=== PATIENT | male | born 1950 | race Caucasian/White ===

== ENCOUNTER → 2023-02-27 07:35 | Outpatient (CLI) | payer MEDICARE, SELFPAY ==
[2023-02-27 09:10] LABS: Alanine Aminotransferase 35 IU/L (<50); Albumin 4.4 g/dL (3.5-5.0); Albumin Globulin Ratio 1.7 (1.0-2.8); Alkaline Phosphatase 58 U/L (38-126); Aspartate Aminotransferase 32 IU/L (17-59); BUN Creatinine Ratio 19.3 (6-22); Bilirubin Total 0.8 mg/dL (0.2-1.3); Blood Urea Nitrogen 16 mg/dL (9-20); Calcium 9.1 mg/dL (8.4-10.2); Carbon Dioxide 33 mmol/L (22-32); Chloride 103 mmol/L (98-107); Cholesterol 123 mg/dL (140-199); Estimated Glomerular Filt Rate > 60 mL/min (>60); Globulin 2.6 g/dL (1.7-4.1); Glucose 99 mg/dL (80-110); HDL Cholesterol 36 mg/dL (40-60); HEMOLYSIS < 15 (0-50); LDL Cholesterol Calculated 71 mg/dL (<100); Potassium 4.4 mmol/L (3.4-5.1); Sodium 141 mmol/L (137-145); Triglycerides 81 mg/dL (35-150)
== END ==
PROVIDERS: PCP Internal Medicine; Referring Provider Internal Medicine; Visit Provider Internal Medicine
DX: I10 Essential (primary) hypertension (principal); E78.2 Mixed hyperlipidemia
CPT/HCPCS: 36415; 80053; 80061

== ENCOUNTER 2023-04-10 23:04 | Emergency (ER) | payer MEDICARE, SELFPAY ==
[2023-04-10 23:10] VITALS: BP 205/95; PULSE 52; RESP 18; O2SAT 100; BMI 27.9
--- NOTE | 2023-04-10 23:26 | DI.RAD.S_ITS ---
PROCEDURE: XR KNEE LT 3V INDICATIONS: fell at 1600,left knee pain and swelling TECHNIQUE: 3 views of the knee were acquired. COMPARISON: None. FINDINGS: Bones: No fractures or dislocations. No suspicious bony lesions. Soft tissues: There is a small joint effusion. There is marked prepatellar soft tissue swelling. No suspicious soft tissue calcifications. IMPRESSION: 1. No fracture or dislocation. 2. Prepatellar soft tissue swelling may represent a subcutaneous hematoma. 3. Small joint effusion. Dictated by: Augie Gottlieb M.D. on 04/11/2023 at 0:36 Approved by: Augie Gottlieb M.D. on 04/11/2023 at 0:37
[2023-04-10 23:57] VITALS: PULSE 54; O2SAT 94
[2023-04-11] VITALS (9 sets, daily range): BP systolic 174–180; BP diastolic 77–79; PULSE 49–58; O2SAT 93–96
--- NOTE | 2023-04-11 00:45 | ED_ITS ---
HPI - Extremity Injury (Lower) General Chief Complaint: Extremity Injury, Lower Stated Complaint: left knee pain Time Seen by Provider: 04/10/23 23:30 Source: patient Mode of arrival: Wheelchair History of Present Illness HPI Narrative: 72M nonsmoker with history of hypertension and hyperlipidemia presents with his in the chief complaint of worsening left knee pain. This afternoon he was walking when he caught his foot on an uneven piece of concrete and fell forward landing on his left knee. He denies any other injury. Initially he had some pain but was able to walk home about a half a mi and sometime afterwards he states he flexed his left knee and felt a pop developed significant rapid onset swelling just above his knee. He now has significant pain. He denies any numbness or tingling. He denies any weakness Related Data Home Medications Medication Instructions Recorded Confirmed Med Choice - 10 in 1 Melatonin 2 tab PO DAILY 07/02/22 02/18/23 Previous Rx's Medication Instructions Recorded amlodipine 10 mg tablet 10 mg PO DAILY #90 tabs 12/17/22 atorvastatin 10 mg tablet 10 mg PO DAILY #90 tabs 12/17/22 losartan 100 1 tab PO DAILY #90 tabs 12/17/22 mg-hydrochlorothiazide 25 mg tablet hydrocodone 5 mg-acetaminophen 325 1 tab PO Q4-6H PRN pain #20 tabs 04/11/23 mg tablet ondansetron 4 mg disintegrating 4 mg PO TID-QID PRN nausea and 04/11/23 tablet vomiting #10 tabs Allergies Allergy/AdvReac Type Severity Reaction Status Date / Time No Known Drug Allergies Allergy Verified 07/02/22 09:19 Review of Systems Review of Systems Narrative: GENERAL: Denies chills, fatigue, malaise, fever, sweats. HEENT: Denies sinus pain, ear pain, sore throat, difficulty swallowing, dizziness. RESPIRATORY: Denies dyspnea, cough, wheezing, hemoptysis, sputum. CARDIOVASCULAR: Denies chest pain, palpitations, orthopnea, edema, GASTROINTESTINAL: Denies nausea, vomiting, abdominal pain, diarrhea, constipation, melena. : Denies dysuria, frequency, incontinence, hematuria, urinary retention. MUSCULOSKELETAL: See HPI SKIN: Denies rash, skin lesions, or other NEUROLOGIC: Denies weakness, headache, numbness, change in speech, confusion, seizures, incoordination. PSYCHIATRIC: No concerning psychosocial issues. 12 point review of systems is negative except for those stated above Patient History Medical History BPH w urinary obs/LUTS Essential hypertension Hearing loss Mixed hyperlipidemia Obstructive sleep apnea, adult (~2019) Vision disorder Surgical History Anesthesia S/P appendectomy (~1984) S/P TURP (status post transurethral resection of prostate) (~2020) Family History Father Hyperlipidemia Hypertension Heart disease Mother Hypertension Alzheimer's dementia Social History Smoking Status: Never smoker Smoking Status: Never smoker Exam Narrative Exam Narrative: GENERAL: [72] year old patient appears stated age. Well-developed patient, in mild distress. HEAD: Atraumatic. Normocephalic. EYES: Pupils equal round and reactive. Extraocular motions intact. No scleral icterus. No injection or drainage. ENT: Nose without bleeding, purulent drainage. Throat without erythema, tonsillar hypertrophy or exudate. Airway patent. NECK: Trachea midline. Non tender CARDIOVASCULAR: Regular rate and rhythm without murmurs, gallops, or rubs. RESPIRATORY: Clear to auscultation. Breath sounds equal bilaterally. No wheezes, rales, or rhonchi. GASTROINTESTINAL: Abdomen soft, non-tender, nondistended. EXTREMITIES: Large suprapatellar effusion on left knee, no significant pain along medial or lateral joint line, no obvious ligamentous instability. Patient with significantly depressed strength with extension at the knee. This is closed, isolated and neurovascularly intact BACK: Nontender without deformity or crepitance. No flank tenderness. NEURO: AOx3. SKIN: No rash or erythema of visible areas Initial Vital Signs Initial Vital Signs: Vital Signs Pulse Rate 52 L 04/10/23 23:10 Respiratory Rate 18 04/10/23 23:10 Blood Pressure 205/95 H 04/10/23 23:10 Pulse Oximetry 100 04/10/23 23:10 Oxygen Delivery Method Room Air 04/10/23 23:10 Course Orders Ordered: ED Orders 04/10/23 23:26 XR knee LT 3V Stat 04/11/23 00:55 CT LE LT wo con Stat Discontinued Medications Hydrocodone Bitart/Acetaminophen (Hydrocodone/Acet 5/325 Tablet) 1 tab PO NOW ONE Stop: 04/11/23 00:56 Last Admin: 04/11/23 01:03 Dose: 1 tab Documented By: FARTUN Hydrocodone Bitart/Acetaminophen (Hydrocodone/Acet 5/325 Prepack) 1 bottle MISC SEEINSTR ONE Stop: 04/11/23 02:48 Last Admin: 04/11/23 03:01 Dose: 1 bottle Vital Signs Vital signs: Vital Signs - 8 hr 04/10/23 23:10 04/10/23 23:57 04/11/23 00:00 Pulse Rate 52 L 54 L 49 L Respiratory Rate 18 Blood Pressure 205/95 H Pulse Oximetry 100 94 96 Oxygen Delivery Method Room Air Room Air Room Air 04/11/23 00:01 04/11/23 00:01 04/11/23 00:30 Pulse Rate 53 L 58 L Respiratory Rate Blood Pressure 180/78 H Pulse Oximetry 94 94 Oxygen Delivery Method Room Air Room Air 04/11/23 00:31 04/11/23 00:31 04/11/23 01:00 Pulse Rate 54 L 53 L Respiratory Rate Blood Pressure 174/79 H Pulse Oximetry 93 94 Oxygen Delivery Method Room Air Room Air 04/11/23 01:01 04/11/23 01:01 04/11/23 01:30 Pulse Rate 52 L 50 L Respiratory Rate Blood Pressure 178/77 H Pulse Oximetry 95 95 Oxygen Delivery Method Room Air Room Air 04/11/23 02:00 04/11/23 02:30 Pulse Rate 51 L 49 L Respiratory Rate Blood Pressure Pulse Oximetry 94 93 Oxygen Delivery Method Room Air Room Air MDM - Extremity Injury (Lower) MDM Narrative Medical decision making narrative: [72] year old patient presents with left knee pain after falling on a flexed knee Multiple etiologies for patient's symptoms considered including, but not limited to: [Patellar fracture versus dislocation versus quadriceps tendon tear versus other] Prior Charts reviewed in our EMR Primary Historian: patient Imaging reviewed: X-ray without acute process, CT LE shows extensive prepatella subQ hematoms collections with proximal extension along the vastus medialus. no fracture or disclocation Consultations: Dr. Nicole (Ortho), agrees that the presentation is most consistent with quad rupture. Recommends immobilizer, walker, weight bearing as tolerated, close follow up Patient's symptoms improved over duration of stay with above-stated therapies. Findings and discharge diagnosis discussed with patient/family followed by verbalization of understanding Return precautions discussed with patient/family whom verbalize understanding of diagnosis and plan Discharge Plan Departure Patient Disposition: Home Clinical Impression: Quadriceps tendon rupture Activity Restrictions/Additional Instructions: *You have been diagnosed with [left quad tendon rupture] *What to do: *Please continue to take your regular medications as directed. [x ] New medication prescriptions sent to your pharmacy: [ [facility] [ ] New medication written as a paper prescription [x] Tylenol and occasional Motrin for pain *Please follow up with [Corey ] of [facility] ias soon as possible, call later this morning for an appointment. Let them know you were seen in the Emergency Department and that Dr. Tapia and Dr. Nicole want you be seen in follow up. We will electronically transmit a record of today's note if your PCP is in our system *Return to Emergency Department if you should have any new, worsening or concerning symptoms, such as [worsening pain, significant swelling, cold extremities, numbness, tingling, weakness or other bothersome symptoms You have been prescribed a short course of narcotic medications. These are potentially dangerous and addictive medications that should be used carefully. While on these medications you cannot drive or operate heavy machinery. Additionally, you cannot sign legal documents or perform any duties such as this. Many people get constipated on narcotic medications so it would be advisable to discuss stool softeners with the pharmacist when you pickle sorter your prescription. Please understand that we cannot provide further refills of narcotics or controlled substances through the ED and your pain management will need to be through your Primary Care Provider Prescriptions: New hydrocodone-acetaminophen 5-325 mg tablet 1 tab PO Q4-6H PRN (Reason: pain) Qty: 20 0RF ondansetron 4 mg tablet,disintegrating 4 mg PO TID-QID PRN (Reason: nausea and vomiting) Qty: 10 0RF No Action losartan-hydrochlorothiazide 100-25 mg tablet 1 tab PO DAILY Qty: 90 0RF atorvastatin 10 mg tablet 10 mg PO DAILY Qty: 90 0RF amlodipine 10 mg tablet 10 mg PO DAILY Qty: 90 0RF Med Choice - 10 in 1 Melatonin 1,148 mg 2 tab PO DAILY Referrals: Feroz Sherman MD [Primary Care Provider] - Keli Nicole MD [Physician] - Stand Alone Forms: Patient Portal/API
--- NOTE | 2023-04-11 00:55 | DI.CT.S_ITS ---
PROCEDURE: CT LE LT W CON INDICATIONS: severe pain, swelling left knee after fall TECHNIQUE: Noncontrast 1-1.5 mm axial sections acquired from the mid-patella to the left knee, with coronal and sagittal reformats. COMPARISON: [facility], CR, XR KNEE LT 3V, 04/10/2023, 23:27. FINDINGS: Image quality: Excellent. Bones: No fractures or dislocation. There is minimal osteophytosis with mild joint space narrowing in the medial compartment. Soft tissues: There is extensive prepatellar soft tissue swelling with a multilobulated heterogeneous hematoma. This demonstrates extension along the vastus medialis muscle proximally. The quadriceps and patellar tendons appear intact. A small focal corticated calcifications demonstrated adjacent to the medial femoral condyle suggesting sequelae of a prior avulsion injury. IMPRESSION: 1. Extensive prepatellar subcutaneous hematoma collections with proximal extension along the vastus medialis muscle. 2. No fracture or dislocation. 3. No joint effusion. Dictated by: Augie Gottlieb M.D. on 04/11/2023 at 2:04 Approved by: Augie Gottlieb M.D. on 04/11/2023 at 2:08
[2023-04-11] MEDS: HYDROCODONE/ACET 5/325 TABLET 1 TAB PO (01:03)
[2023-04-11] MEDS: HYDROCODONE/ACET 5/325 PREPACK 1 BOTTLE MISC (03:01)
== END 2023-04-11 03:25 | disposition home or self-care (01) ==
PROVIDERS: Emergency Provider Emergency Medicine; PCP Internal Medicine
DX: S76.112A Strain of left quadriceps muscle, fascia and tendon, initial encounter (principal); W18.30XA Fall on same level, unspecified, initial encounter
CPT/HCPCS: 73562; 73700; 99284

== ENCOUNTER → 2023-04-11 19:36 | Outpatient (CLI) | payer MEDICARE, SELFPAY ==
--- NOTE | 2023-04-11 | DI.MRI.S_ITS ---
PROCEDURE: MR KNEE LT WO CON INDICATIONS: R/O quad tendon rupture TECHNIQUE: Noncontrast sagittal PD fast spin echo and T2 fast spin echo with fat saturation, sagittal 3-D FLASH with fat saturation; coronal T1 spin echo and PD fast spin echo with fat saturation, and axial PD fast spin echo with fat saturation through the knee. COMPARISON: , CT, CT LE LT WO CON, 04/11/2023, 1:01. , CR, XR KNEE LT 3V, 04/10/2023, 23:27. FINDINGS: Image quality: Excellent. Menisci: There is an irregular inferior flap tear in the posterior horn of the medial meniscus involving the inferior articular surface with extension into the meniscal body. The lateral meniscus appears intact. The meniscal root ligaments appear intact. Cruciate ligaments: The anterior and posterior cruciate ligaments appear intact. Medial structures: The medial collateral ligament appears intact. The semimembranosus tendon insertions and meniscocapsular junction appear intact. Visualized portions of the pes anserinus tendons appear intact without associated bursal fluid collections. Lateral structures: The lateral collateral ligament, long and short heads of the biceps femoris tendon appear intact. The popliteus tendon appears intact. Iliotibial band appears normal. Anterior structures: There are loculated medial prepatellar subcutaneous fluid collections with heterogeneous internal signal redemonstrated consistent with hematomas. These include lobulated collections extending proximally superficial to the vastus medialis muscle. There is extensive associated subcutaneous edema. The quadriceps and patellar tendons appear intact. Patellar alignment is normal. No femoral trochlear dysplasia or ventral trochlear prominence. No edema in the infrapatellar fat pad. Bones and cartilage: No bone marrow contusions or fractures. There is chondral fissuring along the lateral patellar facet and median ridge of the patella. Mild chondral fissuring also demonstrated along the medial femoral condyle with minimal foci of associated subchondral edema. Joint space: There is physiologic knee joint fluid. No Schilling's cyst. Normal appearing synovial plicae are incidentally noted. IMPRESSION: 1. Quadriceps tendon appears intact. 2. Multiple subcutaneous medial prepatellar complex fluid collections redemonstrated consistent with hematomas. These include components extending proximally along the superficial aspect of the vastus medialis muscle. 3. Inferior flap tear in the posterior horn and body of the medial meniscus. Dictated by: Augie Gottlieb M.D. on 04/11/2023 at 22:03 Approved by: Augie Gottlieb M.D. on 04/11/2023 at 22:11
== END ==
PROVIDERS: PCP Internal Medicine; Referring Provider Orthopaedic Surgery; Visit Provider Orthopaedic Surgery
DX: S76.112A Strain of left quadriceps muscle, fascia and tendon, initial encounter (principal); S83.242A Other tear of medial meniscus, current injury, left knee, initial encounter; X58.XXXA Exposure to other specified factors, initial encounter
CPT/HCPCS: 73721

== ENCOUNTER → 2024-02-17 07:14 | Outpatient (CLI) | payer MEDICARE, SELFPAY ==
[2024-02-17 08:33] LABS: Alanine Aminotransferase 28 IU/L (<50); Albumin 4.4 g/dL (3.5-5.0); Albumin Globulin Ratio 1.9 (1.0-2.8); Alkaline Phosphatase 55 U/L (38-126); Aspartate Aminotransferase 31 IU/L (17-59); BUN Creatinine Ratio 21.8 (6-22); Bilirubin Total 0.8 mg/dL (0.2-1.3); Blood Urea Nitrogen 19 mg/dL (9-20); Calcium 9.2 mg/dL (8.4-10.2); Carbon Dioxide 30 mmol/L (22-32); Chloride 105 mmol/L (98-107); Cholesterol 116 mg/dL (140-199); Estimated Glomerular Filt Rate > 60 mL/min (>60); Globulin 2.3 g/dL (1.7-4.1); Glucose 105 mg/dL (80-110); HDL Cholesterol 36 mg/dL (40-60); HEMOLYSIS < 15 (0-50); LDL Cholesterol Calculated 66 mg/dL (<100); Potassium 4.6 mmol/L (3.4-5.1); Sodium 141 mmol/L (137-145); Total Protein 6.7 g/dL (6.3-8.2); Triglycerides 72 mg/dL (35-150)
== END ==
LOC: LAB 07:15
PROVIDERS: PCP Internal Medicine; Referring Provider Internal Medicine; Visit Provider Internal Medicine
DX: I10 Essential (primary) hypertension (principal); E78.2 Mixed hyperlipidemia
CPT/HCPCS: 36415; 80053; 80061

== ENCOUNTER → 2024-03-31 09:13 | Outpatient (CLI) | payer MEDICARE, SELFPAY ==
--- NOTE | 2024-03-31 09:16 | EKG_ITS ---
[place] [id number] [place] [id number] Test Date: 2024-03-31 Pat Name: Rick Lee Department: Room: Gender: Male Dowel Pointer: LILA : 1950 Requested By: Order Number: [id number] Reading MD: Feroz Sherman MD Measurements Intervals [place] Rate: 54 P: 41 ME: 184 QRS: -34 QRSD: 128 T: 1 QT: 434 QTc: 411 Interpretive Statements Sinus bradycardia Left axis deviation Nonspecific intraventricular block Minimal voltage criteria for LVH, may be normal variant ( Manny product ) Inferior infarct , age undetermined NO PRIOR TRACING Electronically Signed On 03-31-2024 12:06:09 PDT by Feroz Sherman MD
== END ==
PROVIDERS: PCP Internal Medicine; Referring Provider Obstetrics & Gynecology; Visit Provider Obstetrics & Gynecology
DX: G47.33 Obstructive sleep apnea (adult) (pediatric) (principal); Z78.9 Other specified health status
CPT/HCPCS: 93005; 93010

== ENCOUNTER → 2025-03-01 08:01 | Outpatient (CLI) | payer MEDICARE, SELFPAY ==
[2025-03-01 09:22] LABS: Alanine Aminotransferase 39 IU/L (<50); Albumin 4.4 g/dL (3.5-5.0); Albumin Globulin Ratio 1.8 (1.0-2.8); Alkaline Phosphatase 58 U/L (38-126); Blood Urea Nitrogen 18 mg/dL (9-20); Calcium 9.1 mg/dL (8.4-10.2); Carbon Dioxide 28 mmol/L (22-32); Chloride 103 mmol/L (98-107); Cholesterol 117 mg/dL (140-199); Estimated Glomerular Filt Rate > 60 mL/min (>60); Globulin 2.4 g/dL (1.7-4.1); Glucose 92 mg/dL (70-99); HDL Cholesterol 34 mg/dL (40-60); HEMOLYSIS < 15 (0-50); Potassium 4.0 mmol/L (3.4-5.1); Sodium 138 mmol/L (137-145); Total Protein 6.8 g/dL (6.3-8.2); Triglycerides 139 mg/dL (35-150)
== END ==
PROVIDERS: PCP Internal Medicine; Referring Provider Internal Medicine; Visit Provider Internal Medicine
DX: I10 Essential (primary) hypertension (principal); E78.2 Mixed hyperlipidemia
CPT/HCPCS: 36415; 80053; 80061